=== PATIENT | female | born 1990 | race Caucasian/White ===

== ENCOUNTER 2016-10-22 08:19 | Emergency (ER) | payer OTHER ==
--- NOTE | ~2016-10-22 | CT4 ---
[facility] A Service of [facility] & [facility] RADIOLOGY TEXT RESULTS PATIENT: TRIP PALACIOS LOCATION: SED : [birth year] UNIT #: [id number] AGE: [address]: Jarred Garcia MD SEX: F ORDER DR: [id number] [address] [address] [id number] MR#: [id number] Acc #: [id number] NAME: TRIP PALACIOS. : 1990 SEX: F STUDY DATE/TIME: 10/22/2016 8:47 UNIT: SED ROOM: STUDY DESCRIPTION: CT Abd and Pelv Wo Cont Attending Physician: Jarred Garcia M.D. Ordering Physician: Jarred Garcia M.D. Primary Care Physician: No Primary Care Physician MEDICAL IMAGING REPORT This report is preliminary unless electronic signature is present. EXAM CT abdomen and pelvis, 10/22/2016. HISTORY Burning with urination. Burning with urination times a few days. Right flank pain. TECHNIQUE CT abdomen and pelvis performed without administration of oral or IV contrast. This CT exam was performed with one or more of the following radiation dose reduction techniques: automatic exposure control, adjustment of mA and/or kV according to patient size, and iterative reconstruction. FINDINGS The lung bases unremarkable. Inferior heart and pericardium unremarkable. Liver unremarkable. Liver, gallbladder, spleen unremarkable. Gallbladder nearly completely decompressed. The pancreas is unremarkable. The adrenal glands unremarkable. No hydronephrosis or nephrolithiasis. No indication of ureteral dilatation. The ureter is difficult to visualize given paucity of retroperitoneal fat. No secondary signs of recent stone passage. CT pelvis: No inguinal adenopathy. Small amount of free fluid in pelvis likely physiologic in nature. Uterus unremarkable. There is an approximately 2-3 mm calcification in the inferior left hemipelvis. Relationship to the left ureteral is very unclear. Again, there is no ureteral dilatation and I favor that this calcification is a phlebolith. If it were a ureteral calculus, I would have anticipated some degree of ureteral dilatation. A 2.8 cm left ovarian cyst, likely the dominant follicle for this menstrual cycle. No pelvic or retroperitoneal adenopathy. Distal esophagus unremarkable. There is mild gastric STS. [facility] A Service of [facility] & [facility] RADIOLOGY TEXT RESULTS PATIENT: TRIP PALACIOS LOCATION: SED : 92 UNIT #: [id number] AGE: [address]: Jarred Garcia MD SEX: F ORDER DR: distension with air and food debris. Correlate with ingestion history. Small bowel unremarkable. I believe the patient retains normal appendix. Colon contains air and stool throughout its course. Moderate stool burden proximally likely physiologic. No acute appearing colonic abnormality. The unopacified vascular structures are normal in caliber. The bony structures are unremarkable. IMPRESSION 1. No renal calculi or obstruction. There is no hydronephrosis or hydroureter and no perinephric inflammatory change. There is a calcification in the deep left pelvis strongly favored to be a phlebolith given lack of any ureteral distension. 2. There is a small amount of free fluid in the pelvis. Not a drainable fluid collection and likely physiologic in nature. 3. 2.8 cm left ovarian cyst likely dominant follicle for this menstrual cycle. 4. Gallbladder, pancreas, appendix unremarkable. 5. Mild gastric distension with food debris and air. Correlate with ingestion history. 6. Moderate stool burden proximal colon likely physiologic in nature. Air and stool seen throughout colon to rectum. Dictated by... Hank Jurado M.D. THIS IS AN ELECTRONICALLY VERIFIED REPORT Hank Jurado M.D. at 10/24/2016 6:13 PM Ian TD: 10/22/2016 14:10 JOB #: [id number] MEDICAL IMAGING REPORT Page 1 of 1
[~2016-10-22 08:19] MED LIST: AMOXICILLIN875 MG PO; BACTRIM DS TABL1 TA1 PO; DIFLUCAN200 MG PO; NO MEDICATIONS
[2016-10-22 08:35] LABS: URINE APPEARANCE SL CLOUDY; URINE BILIRUBIN NEG (NEG); URINE BLOOD 3+ (NEG); URINE COLOR YELLOW; URINE GLUCOSE NEG (NORM); URINE KETONE NEG (NEG); URINE LEUKOCYTE ESTERASE 3+ (NEG); URINE NITRATE POS (NEG); URINE PROTEIN 2+ (NEG); URINE SOURCE CLEAN CATCH; URINE SPECIFIC GRAVITY 1.025 (1.003-1.035)
[2016-10-22 08:36] LABS: MICRO INDICATED? YES
[2016-10-22 08:42] LABS: CULTURE INDICATED? YES; URINE BACTERIA 1+ (NEG); URINE SQUAMOUS EPITHELIAL CELL FEW /[HPF]; URINE WBC 200-300 /[HPF] (0-5)
[2016-10-22 08:56] LABS: BASOPHIL% 0.4 % (0-2.5); EOSINOPHIL# 0.1 X10e3 (0-0.7); EOSINOPHIL% 0.8 % (0.0-7.0); HEMATOCRIT 36.5 % (35.0-45.0); HEMOGLOBIN 12.4 gm/dL (12.0-16.0); LYMPHOCYTE# 1.1 X10e3 (1.0-3.5); MEAN CELL VOLUME 89.2 FL (83-96); MEAN CORPUSCULAR HEMOGLOBIN 30.3 PG (28-34); MEAN PLATELET VOLUME 7.6 FL (6.5-11.5); MONOCYTE# 0.2 X10e3 (0-1.0); MONOCYTE% 2.6 % (3.0-12.0); NEUTROPHIL# 7.9 X10e3 (1.5-7.1); NEUTROPHIL% 84.2 % (40-75); PLATELET COUNT 181 X10e3 (140-420); RED BLOOD COUNT 4.09 X10e (3.90-5.30); RED CELL DISTRIBUTION WIDTH 12.9 % (11.0-15.5); WHITE BLOOD COUNT 9.4 X10e3 (4.0-10.5)
[2016-10-22 08:57] LABS: DIFF IND NO
[2016-10-22 09:18] LABS: ALBUMIN SERUM 4.5 g/dL (3.5-5.0); BILIRUBIN,TOTAL 0.7 mg/dL (0.2-2.0); BUN/CREATININE RATIO 13.75; CREATININE SERUM 0.8 mg/dL (0.6-1.4); POTASSIUM 3.3 mmol/L (3.5-5.1); PROTEIN TOTAL SERUM 7.5 g/dL (6.0-8.3)
[2016-10-24] MEDS ORDERED: MACROBID100 M1 PO (08:31)
== END 2016-10-22 10:08 | disposition home or self-care (01) ==
LOC: SED 08:19
PROVIDERS: Emergency Medicine
DX: N39.0 Urinary tract infection, site not specified (principal)
CPT/HCPCS: 36415; 74176; 80053; 81003; 84703; 85025; 87086; 87088; 87186; 99284

== ENCOUNTER 2016-10-24 17:30 | Emergency (ER) | payer OTHER ==
[~2016-10-24 17:30] MED LIST changes: +MACROBID100 M1 PO
== END 2016-10-24 20:14 | disposition home or self-care (01) ==
LOC: SED 17:30
DX: N30.00 Acute cystitis without hematuria (principal)
CPT/HCPCS: 96374; 99283; J0696

== ENCOUNTER 2016-11-07 08:51 | Emergency (ER) | payer OTHER ==
[2016-11-07] MEDS ORDERED: NO MEDICATIONS (08:57)
[2016-11-07 09:46] LABS: URINE SOURCE CLEAN CATCH
[2016-11-07 09:49] LABS: URINE BILIRUBIN NEG (NEG); URINE BLOOD 2+ (NEG); URINE COLOR YELLOW; URINE GLUCOSE NEG (NORM); URINE KETONE NEG (NEG); URINE LEUKOCYTE ESTERASE TRACE (NEG); URINE NITRATE NEG (NEG); URINE PROTEIN NEG (NEG); URINE UROBILINOGEN 0.2 MG/DL (NORM)
[2016-11-07 09:52] LABS: MICRO INDICATED? YES; URINE APPEARANCE SL HAZY
[2016-11-07 09:58] LABS: CULTURE INDICATED? YES; URINE BACTERIA 2+ (NEG); URINE SQUAMOUS EPITHELIAL CELL MODERATE /[HPF]
[2016-11-09 07:40] LABS: CHLAMYDIA TRACH Not Detected (Not Detected); N GONOR Not Detected (Not Detected)
== END 2016-11-07 11:20 | disposition home or self-care (01) ==
LOC: SED 08:51
PROVIDERS: Student in an Organized Health Care Education/Training Program
DX: N89.8 Other specified noninflammatory disorders of vagina (principal); Z88.8 Allergy status to other drugs, medicaments and biological substances
CPT/HCPCS: 81003; 84703; 87086; 87491; 87591; 87808; 87905; 99283